=== PATIENT | female | born 1945 | race Caucasian/White ===

== ENCOUNTER → 2016-11-17 | Outpatient (CLI) | payer BC | END | disposition home or self-care (01) | LOC: C.RDSM 12:15 | PROVIDERS: ATTEND Physical Medicine & Rehabilitation Sports Medicine | DX: M25.561 Pain in right knee (principal) ==

== ENCOUNTER → 2016-11-17 | Outpatient (CLI) | payer BC ==
--- NOTE | 2016-11-17 11:56 | DIAGNOSTIC IMAGING REPORT ---
ULTRASOUND RIGHT VENOUS DOPP LOWER EXT UNILAT CLINICAL HISTORY: Right leg swelling COMPARISON STUDY: No previous studies for comparison. FINDINGS: Real-time and color flow Doppler imaging were performed. Flow was seen within the femoral, popliteal and calf veins with no intraluminal thrombus demonstrated. The saphenous vein is patent. IMPRESSION: No evidence of right lower extremity DVT. Electronically signed by: Higinio Luna M.D. 11/17/2016 11:55 AM Dictated Date/Time: 11/17/2016 11:55 AM
== END | disposition home or self-care (01) ==
LOC: C.ULTR 11:29
PROVIDERS: ATTEND Physical Medicine & Rehabilitation Sports Medicine
DX: M79.89 Other specified soft tissue disorders (principal)

== ENCOUNTER → 2017-07-20 | Outpatient (CLI) | payer BC ==
--- NOTE | 2017-07-20 12:57 | DIAGNOSTIC IMAGING REPORT ---
KUB HISTORY: N39.46 Urge and stress incontinence COMPARISON: KUB 03/18/2012. FINDINGS: The bowel gas pattern is unremarkable. There are no dilated loops of small bowel to suggest an obstruction. Moderate to large amount well-formed stool seen within the majority of the colon. No definite renal calculi. Prior cholecystectomy. Multiple new calcification seen within the deep pelvis. These could represent bladder stones or phleboliths. There is also a 2 mm punctate calcification within the right deep pelvis which is new from the prior study. No pneumoperitoneum or pneumatosis. IMPRESSION: 1. No definite renal calculi. 2. Multiple new calcifications within the deep pelvis. These could represent bladder stones or phleboliths. 3. There is also a new 2 mm punctate calcification within the right deep pelvis which could represent a phlebolith or punctate distal right ureteral stone. CT examination can be performed if the patient is complaining of right-sided flank pain. Electronically signed by: Fletcher Hannah M.D. 07/20/2017 12:56 PM Dictated Date/Time: 07/20/2017 12:52 PM
== END | disposition home or self-care (01) ==
LOC: C.RAD 12:21
PROVIDERS: ATTEND Urology
DX: N39.46 Mixed incontinence (principal); M25.80 Other specified joint disorders, unspecified joint

== ENCOUNTER → 2017-08-19 | Outpatient (CLI) | payer BC ==
--- NOTE | 2017-08-19 09:38 | DIAGNOSTIC IMAGING REPORT ---
CT SCAN OF THE ABDOMEN AND PELVIS WITHOUT CONTRAST CLINICAL HISTORY: N20.0 nephrolithiasis COMPARISON STUDY: KUB dated 07/20/2017 TECHNIQUE: CT scan of the abdomen and pelvis was performed from the lung bases to the proximal femurs. Images are reviewed in the axial, sagittal, and coronal planes. IV contrast was not administered for this examination. A dose lowering technique was utilized adhering to the principles of ALARA. CT DOSE: 702.35 mGy.cm FINDINGS: Lower chest: There is mild basilar atelectasis/scarring. Liver: There is hepatic steatosis. No focal masses are visualized. Gallbladder: Surgically absent Spleen: There is a 2 mm fat-containing density within the inferior aspect of the spleen. This is of doubtful clinical significance. Pancreas: Unremarkable. Adrenal glands: There is a 13 mm right adrenal adenoma. Kidneys: No renal, ureteral, or bladder calculi are visualized. Bowel: There are no transition zones to indicate bowel obstruction. There is scattered stool throughout the colon. By history the appendix is absent. There is no acute diverticulitis. Peritoneum: There is no intraperitoneal free air or abdominal ascites. Vasculature: The abdominal aorta is normal in course and caliber. Adenopathy: There are bilateral common iliac artery lymph nodes at the upper limits of normal in size Pelvic viscera: Uterine calcifications are visualized, likely secondary to degenerating fibroids Skeletal structures: No destructive osseous lesions are seen. IMPRESSION: 1. No renal, ureteral, or bladder calculi identified 2. Hepatic steatosis 2. Surgically absent gallbladder 4. 13 mm right adrenal adenoma Electronically signed by: Higinio Luna M.D. 08/19/2017 9:37 AM Dictated Date/Time: 08/19/2017 9:32 AM
== END | disposition home or self-care (01) ==
LOC: C.CTS 09:15
PROVIDERS: ATTEND Urology
DX: K76.0 Fatty (change of) liver, not elsewhere classified (principal); D35.00 Benign neoplasm of unspecified adrenal gland; Z90.49 Acquired absence of other specified parts of digestive tract